=== PATIENT | female | born 1980 | race Two or more races ===

== ENCOUNTER 2020-06-01 12:56 | Emergency (ER) | payer OTHER ==
[~2020-06-01] VITALS: Ht 165.1 cm; Wt 77.1 kg
[~2020-06-01 12:56] MED LIST: OSEL75CA PO
[2020-06-01] MEDS ORDERED: VOLTAREN100 GM TOP (18:53)
[2020-06-01] MEDS ORDERED: ORPHENADRINE C100 MG PO (18:53)
[2020-06-01] MEDS ORDERED: MEDROLPACK PO (18:53)
== END 2020-06-01 19:03 | disposition home or self-care (01) ==
LOC: ER 12:56
DX: M54.12 Radiculopathy, cervical region (principal); R51.9 Headache, unspecified; R53.1 Weakness; M54.2 Cervicalgia; Z03.818 Encounter for observation for suspected exposure to other biological agents ruled out

== ENCOUNTER 2023-01-13 07:41 | Inpatient (IN) | payer OTHER ==
[~2023-01-13] VITALS: Ht 165.1 cm; Wt 79.8 kg
[~2023-01-13 07:41] MED LIST changes: +MEDROLPACK PO; +ORPHENADRINE C100 MG PO; +VOLTAREN100 GM TOP
--- NOTE | 2023-01-13 08:00 | NUR ---
SE RECIBE PTE FEMENINA DE 42Y ALERTA Y ORIENTADA X3 SIN HX PASADO. ESTA REFIERE QUE DESDE LIBRADO EMPEZO A PRESENTAR DOLOR EN AREA ABDOMINAL PUNZANTE SEGUIDO DE DIARREA X1. SE MIDEN S/V, AL MOMENTO PTE PRESENTA TEMP ELEVADA DE 101.3. SE SIENTE CALIENTE AL TACTO. SE UBICA EN AMRITA DE OBSERVACION.
--- NOTE | 2023-01-13 10:33 | NUR ---
SE RECIBE PTE ALERTA ORIENTADA X3.SE BEN MUESTRAS DE [facility] US[facility] MEDIDAS ASEPTICAS.SE ADMINISTRAN MEDICAMENTOS TERESA ORDEN MEDICA.SE ORIENTA PTE MANTENERSE EN NPO.
[2023-01-13 10:53] LABS: HEMATOCRIT 37.4 % (36.0-45.00); HEMOGLOBIN 12.3 g/dL (12.0-15.00); MEAN CELL VOLUME 91.1 fL (80.00-100.00); MEAN CORPUSCULAR HEMOGLOBIN 29.9 pg (27.00-32.0); MEAN CORPUSCULAR HGB CONC 32.8 g/dl (32.0-36.0); PLATELET COUNT 381 K/uL (150-450); RED CELL DISTRIBUTION WIDTH 13.7 % (11.5-14.5)
[2023-01-13 11:13] LABS: ALBUMIN 3.6 gm/dL (3.4-5.0); BILIRUBIN TOTAL 0.54 mg/dL (0.3-1.2); CALCIUM 8.6 mg/dL (8.5-10.1); CREATININE SERUM 1.05 mg/dL (0.55-1.02); GFR 57.2; GLOBULINA 4.1 G/DL (2.4-3.5); POTASSIUM 3.54 mEq/L (3.5-5.1); TOTAL PROTEIN 7.7 gm/dL (6.4-8.2)
[2023-01-13 11:42] LABS: INR 1.11; PROTHROMBIN TIME 11.6 SECONDS (9.0-11.5)
[2023-01-13 19:54] LABS: HEMATOCRIT 33.2 % (36.0-45.00); HEMOGLOBIN 10.8 g/dL (12.0-15.00); MEAN CORPUSCULAR HEMOGLOBIN 29.2 pg (27.00-32.0); MEAN CORPUSCULAR HGB CONC 32.4 g/dl (32.0-36.0); PLATELET COUNT 331 K/uL (150-450); RED BLOOD COUNT 3.69 M/uL (4.00-6.00)
[2023-01-14 06:35] LABS: HEMATOCRIT 32.2 % (36.0-45.00); MEAN CELL VOLUME 90.7 fL (80.00-100.00); MEAN CORPUSCULAR HGB CONC 32.3 g/dl (32.0-36.0); PLATELET COUNT 301 K/uL (150-450); RED BLOOD COUNT 3.55 M/uL (4.00-6.00); RED CELL DISTRIBUTION WIDTH 13.9 % (11.5-14.5)
[2023-01-14 06:44] LABS: HEMOGLOBIN 10.4 g/dL (12.0-15.00); MEAN CORPUSCULAR HEMOGLOBIN 29.2 pg (27.00-32.0)
[2023-01-15 07:30] LABS: HEMATOCRIT 30.4 % (36.0-45.00); MEAN CELL VOLUME 89.2 fL (80.00-100.00); MEAN CORPUSCULAR HEMOGLOBIN 30.2 pg (27.00-32.0); MEAN CORPUSCULAR HGB CONC 33.8 g/dl (32.0-36.0); PLATELET COUNT 292 K/uL (150-450); RED BLOOD COUNT 3.41 M/uL (4.00-6.00); RED CELL DISTRIBUTION WIDTH 13.8 % (11.5-14.5)
[2023-01-15 07:56] LABS: HEMOGLOBIN 10.3 g/dL (12.0-15.00)
[2023-01-16 06:33] LABS: HEMATOCRIT 29.7 % (36.0-45.00); HEMOGLOBIN 10.2 g/dL (12.0-15.00); MEAN CELL VOLUME 88.3 fL (80.00-100.00); MEAN CORPUSCULAR HEMOGLOBIN 30.3 pg (27.00-32.0); MEAN CORPUSCULAR HGB CONC 34.3 g/dl (32.0-36.0); PLATELET COUNT 297 K/uL (150-450); RED BLOOD COUNT 3.36 M/uL (4.00-6.00); RED CELL DISTRIBUTION WIDTH 13.6 % (11.5-14.5)
[2023-01-16 06:54] LABS: CREATININE SERUM 0.65 mg/dL (0.55-1.02); GFR 99.48; POTASSIUM 3.36 mEq/L (3.5-5.1)
[2023-01-16 23:05] LABS: chla t Negative (Negative); neiss Positive (Negative)
[2023-01-17 06:48] LABS: HEMATOCRIT 28.2 % (36.0-45.00); HEMOGLOBIN 9.5 g/dL (12.0-15.00); MEAN CORPUSCULAR HGB CONC 33.7 g/dl (32.0-36.0); PLATELET COUNT 317 K/uL (150-450); RED BLOOD COUNT 3.17 M/uL (4.00-6.00); RED CELL DISTRIBUTION WIDTH 13.8 % (11.5-14.5)
[2023-01-17 07:52] LABS: ALBUMIN 2.4 gm/dL (3.4-5.0); BILIRUBIN TOTAL 0.34 mg/dL (0.3-1.2); CALCIUM 7.6 mg/dL (8.5-10.1); CREATININE SERUM 0.57 mg/dL (0.55-1.02); GFR 115.76; POTASSIUM 3.26 mEq/L (3.5-5.1); TOTAL PROTEIN 5.4 gm/dL (6.4-8.2)
== END 2023-01-17 16:02 | disposition home or self-care (01) | DRG 690 ==
LOC: ER 07:42 → SURG 21:52
PROVIDERS: Emergency Medicine; General Practice; Internal Medicine Infectious Disease; ADMIT Internal Medicine; ATTEND Internal Medicine
PROC: BW4GZZZ Ultrasonography of Pelvic Region (ICD-10-PCS; principal; 2023-01-13)
PROC: BW21YZZ Computerized Tomography (CT Scan) of Abdomen and Pelvis using Other Contrast (ICD-10-PCS; 2023-01-13)
DX: N39.0 Urinary tract infection, site not specified (principal); R65.10 Systemic inflammatory response syndrome (SIRS) of non-infectious origin without acute organ dysfunction; A09 Infectious gastroenteritis and colitis, unspecified